=== PATIENT | female | born 1980 | race Hispanic/Latino ===

== ENCOUNTER 2016-07-12 08:16 | Emergency (ER) | payer OTHER ==
[~2016-07-12] VITALS: Ht 165.1 cm; Wt 76.2 kg
[~2016-07-12 08:16] MED LIST: NAPROSYN500 MG PO; NAPROXEN500 MG PO; VALIUM2 MG PO; ZOFRAN ODT4 MG PO
[2016-07-12] MEDS ORDERED: FLEXERIL10 MG PO (09:17)
[2016-07-12] MEDS ORDERED: MOTRIN600 MG PO (09:17)
[2016-07-12 09:39] VITALS: BP 104/51
== END 2016-07-12 09:40 | disposition home or self-care (01) ==
LOC: EME 08:16
DX: M53.88 Other specified dorsopathies, sacral and sacrococcygeal region (principal)
CPT/HCPCS: 99281; 99283